=== PATIENT | female | born 1935 | race Caucasian/White ===

== ENCOUNTER 2025-10-03 00:23 | Observation (INO) | payer MEDICARE, SELFPAY ==
[2025-10-02 19:58] VITALS: BP 181/102
[2025-10-02 20:20] VITALS: BP 164/86
--- NOTE | 2025-10-02 20:24 | ED.GENMED ---
History of Present Illness
<Anup Ledbetter PA-C - Last Filed: 10/02/25 23:55>
General
Chief Complaint: Abdominal Symptoms
Time Seen by Provider: 10/02/25 20:13
History of Present Illness
History of Present Illness:
89-year-old female presents to the emergency department for evaluation of abrupt onset of nausea vomiting and diarrhea and generalized chills beginning this evening. The patient and her niece are currently traveling from [place] as they are
moving to [place]. She was about her normal state of health today until the late afternoon when she began to complain of fatigue and had abrupt onset of symptoms. Of note she was recently admitted to a hospital in [place] for possible stroke
and according to her niece was started on 'some antiplatelet or anticoagulant, I am not sure'. She has a history of biliary stent with a removal plan earlier this month that was canceled due to the initiation of the blood thinner after potential
stroke. When questioned about potential recent antibiotic use the patient repeatedly states 'ciprofloxacin' but is unable to give me any further details of this and her niece is not certain that this did occur.
Patient is a biliary stent in place that was required after having what sounds to be cholangitis due to biliary obstruction in the aftermath of a laparoscopic cholecystectomy. Her primary health care has been in [facility] up until recently
Review of Systems
<Anup Ledbetter PA-C - Last Filed: 10/02/25 23:55>
Review of Systems
Allergies reviewed?: Yes
All Other Systems: ROS reviewed and negative except as documented in HPI and ROS
Phy Exam
<Anup Ledbetter PA-C - Last Filed: 10/02/25 23:55>
Physical Exam
Physical Exam:
GEN: Ill-appearing, pale, tremulous
HEENT: Oral mucosa moist, no scleral icterus
Cardiac: Tachycardic, regular
Lung: No respiratory distress, no tachypnea
Abdomen: Soft, grossly nontender to palpation
MSK: No gross deformity or injuries
Skin: Good color, no pallor or jaundice, no rashes
Neuro: Alert, mildly confused, moves all extremities freely
Psych: Calm, cooperative
Course
<Anup Ledbetter PA-C - Last Filed: 10/02/25 23:55>
Orders/Labs/Results
Orders:
Orders
10/02/25 20:20
Ondansetron Injectable [Zofran] 4 mg IV NOW STA
10/02/25 20:21
Lactated Ringers [Lr] 1,000 ml IV BOLUS
10/02/25 20:37
Complete Blood Count/With Diff Urgent
Comprehensive Metabolic Panel Urgent
Lactic Acid Q4H
Comment: CANCEL 2nd LACTIC ACID IF 1st LACTIC ACID IS LESS THAN 2
Lipase Urgent
Prothrombin Time Urgent
10/02/25 20:38
Blood Culture Q30M
JUAN Source: Blood/Venous
Specimen Description:
Blood Culture Q30M
JUAN Source: Blood/Venous
Specimen Description:
10/02/25 21:37
CT Abd/Pel (IV only)-DH only Urgent
Comment:
Reason For Exam: N/V/D lactic acidosis
10/03/25 00:05
COVID-19 Antigen Stat
Source: Nasal Swab
Influenza A+B Rapid Molecular Stat
JUAN Source: Nasal Swab
Specimen Description:
STOOL [C difficile Antigen & Toxins] Routine
JUAN Source: Feces/Stool
Specimen Description:
Stool Culture Routine
JUAN Source: Feces/Stool
Specimen Description:
Stool For WBC Routine
JUAN Source: Feces/Stool
Specimen Description:
Yersinia Culture-Stool Routine
JUAN Source: Feces/Stool
Specimen Description:
10/03/25 00:08
Admit/Transfer Patient As Directed
Co-Sign Provider:
Level of Care: Observation services
Assign to:: Medical/Surgical
Physician / Group: juan f
Diagnosis: enterecolitis
PRN Pain Medication Management As Directed
May give lesser potent ordered pain med per pt: Yes
preference::
Protocol:: Medication orders for pain may be administered in a
manner that supports deferring to patient preference
when the pt is:
- Requesting an ordered lesser potent pain medication.
Least to most potent pain medications are defined
as: acetaminophen < NSAID < tramadol < opioids
(morphine, oxycodone, hydromorphone).
- Requesting a lesser dose of the same medication IF
ORDERED.
- Requesting a less intrusive route of administration
if both routes are prescribed by the provider (PO <
IV).
10/03/25 00:10
Code Status As Directed
Resuscitation Status: Do not resuscitate
Reached after discussion with pt or family/Healthcare POA: Yes
DNR Bracelet Application ONCE
10/03/25 00:30
Lactic Acid Q4H
Comment: CANCEL 2nd LACTIC ACID IF 1st LACTIC ACID IS LESS THAN 2
Abnormal Lab Results
10/02/25
20:37
WBC 18.8 H 10^3/uL
(4.8-10.8)
RBC 4.01 L 10^6/uL
(4.20-5.40)
Hgb 9.3 L g/dL
(12.0-16.0)
Hct 30.8 L %
(37.0-47.0)
MCV 76.8 L fL
(81.0-99.0)
MCH 23.2 L pg
(27.0-31.0)
MCHC 30.2 L g/dL
(33.0-37.0)
RDW 17.7 H %
(11.5-14.5)
Abs Immat Gran (auto) 0.1 H 10^3/uL
(0-0.05)
Absolute Neuts (auto) 16.7 H 10^3/uL
(1.4-6.5)
Absolute Lymphs (auto) 0.8 L 10^3/uL
(1.2-3.4)
Absolute Monos (auto) 1.0 H 10^3/uL
(0.1-0.6)
Neutrophils % 88.5 H %
(42.2-75.2)
Lymphocytes % 4.0 L %
(20.5-51.1)
PT 14.8 H Sec
(11.4-14.6)
Potassium 3.4 L mmol/L
(3.5-5.1)
Chloride 110 H mmol/L
(98-107)
BUN 21 H mg/dl
(7-17)
Glucose 191 H mg/dl
(70-99)
Lactic Acid 3.6 H mmol/L
(0.7-2.0)
Alkaline Phosphatase 171 H U/L
(38-126)
10/02/25 20:37
10/02/25 20:37
Vital Signs
Initial and Last Documented VS:
Initial Vital Signs
Temp Pulse Resp BP Pulse Ox
98.2 F 110 16 181/102 95
10/02/25 19:58 10/02/25 19:58 10/02/25 19:58 10/02/25 19:58 10/02/25 19:58
Last Documented Vital Signs
Temp Pulse Resp BP Pulse Ox
98.1 F 100 21 145/96 98
10/02/25 22:55 10/02/25 22:30 10/02/25 22:30 10/02/25 22:19 10/02/25 22:30
<Josiane Conn MD - Last Filed: 10/03/25 00:19>
Orders/Labs/Results
Orders:
Orders
10/02/25 20:20
Ondansetron Injectable [Zofran] 4 mg IV NOW STA
10/02/25 20:21
Lactated Ringers [Lr] 1,000 ml IV BOLUS
10/02/25 20:37
Complete Blood Count/With Diff Urgent
Comprehensive Metabolic Panel Urgent
Lactic Acid Q4H
Comment: CANCEL 2nd LACTIC ACID IF 1st LACTIC ACID IS LESS THAN 2
Lipase Urgent
Prothrombin Time Urgent
10/02/25 20:38
Blood Culture Q30M
JUAN Source: Blood/Venous
Specimen Description:
Blood Culture Q30M
JUAN Source: Blood/Venous
Specimen Description:
10/02/25 21:37
CT Abd/Pel (IV only)-DH only Urgent
Comment:
Reason For Exam: N/V/D lactic acidosis
10/03/25 00:05
COVID-19 Antigen Stat
Source: Nasal Swab
Influenza A+B Rapid Molecular Stat
JUAN Source: Nasal Swab
Specimen Description:
STOOL [C difficile Antigen & Toxins] Routine
JUAN Source: Feces/Stool
Specimen Description:
Stool Culture Routine
JUAN Source: Feces/Stool
Specimen Description:
Stool For WBC Routine
JUAN Source: Feces/Stool
Specimen Description:
Yersinia Culture-Stool Routine
JUAN Source: Feces/Stool
Specimen Description:
10/03/25 00:08
Admit/Transfer Patient As Directed
Co-Sign Provider:
Level of Care: Observation services
Assign to:: Medical/Surgical
Physician / Group: juan f
Diagnosis: enterecolitis
PRN Pain Medication Management As Directed
May give lesser potent ordered pain med per pt: Yes
preference::
Protocol:: Medication orders for pain may be administered in a
manner that supports deferring to patient preference
when the pt is:
- Requesting an ordered lesser potent pain medication.
Least to most potent pain medications are defined
as: acetaminophen < NSAID < tramadol < opioids
(morphine, oxycodone, hydromorphone).
- Requesting a lesser dose of the same medication IF
ORDERED.
- Requesting a less intrusive route of administration
if both routes are prescribed by the provider (PO <
IV).
10/03/25 00:10
Code Status As Directed
Resuscitation Status: Do not resuscitate
Reached after discussion with pt or family/Healthcare POA: Yes
DNR Bracelet Application ONCE
10/03/25 00:30
Lactic Acid Q4H
Comment: CANCEL 2nd LACTIC ACID IF 1st LACTIC ACID IS LESS THAN 2
Abnormal Lab Results
10/02/25
20:37
WBC 18.8 H 10^3/uL
(4.8-10.8)
RBC 4.01 L 10^6/uL
(4.20-5.40)
Hgb 9.3 L g/dL
(12.0-16.0)
Hct 30.8 L %
(37.0-47.0)
MCV 76.8 L fL
(81.0-99.0)
MCH 23.2 L pg
(27.0-31.0)
MCHC 30.2 L g/dL
(33.0-37.0)
RDW 17.7 H %
(11.5-14.5)
Abs Immat Gran (auto) 0.1 H 10^3/uL
(0-0.05)
Absolute Neuts (auto) 16.7 H 10^3/uL
(1.4-6.5)
Absolute Lymphs (auto) 0.8 L 10^3/uL
(1.2-3.4)
Absolute Monos (auto) 1.0 H 10^3/uL
(0.1-0.6)
Neutrophils % 88.5 H %
(42.2-75.2)
Lymphocytes % 4.0 L %
(20.5-51.1)
PT 14.8 H Sec
(11.4-14.6)
Potassium 3.4 L mmol/L
(3.5-5.1)
Chloride 110 H mmol/L
(98-107)
BUN 21 H mg/dl
(7-17)
Glucose 191 H mg/dl
(70-99)
Lactic Acid 3.6 H mmol/L
(0.7-2.0)
Alkaline Phosphatase 171 H U/L
(38-126)
10/02/25 20:37
10/02/25 20:37
Vital Signs
Initial and Last Documented VS:
Initial Vital Signs
Temp Pulse Resp BP Pulse Ox
98.2 F 110 16 181/102 95
10/02/25 19:58 10/02/25 19:58 10/02/25 19:58 10/02/25 19:58 10/02/25 19:58
Last Documented Vital Signs
Temp Pulse Resp BP Pulse Ox
98.1 F 100 21 145/96 98
10/02/25 22:55 10/02/25 22:30 10/02/25 22:30 10/02/25 22:19 10/02/25 22:30
<Anup Ledbetter PA-C - Last Filed: 10/02/25 23:55>
MDM/Problems Addressed
MDM/Problems Addressed:
Patient with significant leukocytosis which is most likely a stress response/due to hypovolemia. She also has marked lactic acidosis. Imaging shows no evidence for acute surgical pathology rather significant evidence for enterocolitis. Biliary
stenting appears to be stable with no evidence for obstruction. Clinically her symptoms are compatible with acute enterocolitis, do not suspect cholangitis. At this time the patient has numerous antibiotic allergies thus we will hold off on
empiric antibiotics as viral pathogen and may be the ultimate culprit. Given her advanced age and significant lab abnormalities however will admit to the hospitalist service for further IV hydration and management
<Anup Ledbetter PA-C - Last Filed: 10/02/25 23:55>
*Pulse Oximetry
SaO2: 95
Oxygen Mode of Delivery: Room air
Patient hypoxic: no
*Critical Care Note
Total Time (30-74mins, 75-104mins- exclusive of procedures): Not Applicable
ED Attending Note
<Anup Ledbetter PA-C - Last Filed: 10/02/25 23:55>
-
Portions of this chart may have been created with voice recognition software.� Occasional wrong word or��sound alike� substitutions may have occurred due to the inherent limitations of voice recognition software.
<Josiane Conn MD - Last Filed: 10/03/25 00:19>
ED Attending Note
Patient seen and examined by attending physician: Yes
I performed the substantive portion of visit, reviewed & personally made and approve the management plan that is documented in note by myself or LARRY.: Yes
ED Attending Note:
89-year-old female was feeling perfectly well until earlier today where she developed multiple episodes of nonbloody vomiting associated with nonbloody diarrhea. She denies abdominal pain at this time. She denies fever, chills, chest pain,
shortness of breath. On exam, patient is awake alert pleasant. Rash noted which she states is subacute/chronic. Abdomen soft and nontender. Plan is admission, hydration, close observation. Will not administer antibiotics at this time given
multiple drug allergies/antibiotic allergies, no specific source noted, etc.
Discharge Plan
Departure
Patient Disposition: Admit
Date of Disposition: 10/02/25
Time of Disposition: 23:12
Admit to: Med/Surg
Presentation/result/management discussed w/ accepting MD/DO: Hospitalist
Discharge Problem:
Enterocolitis
Prescriptions:
No Action
atorvastatin 40 mg Tablet
40 mg PO DAILY
clopidogrel [Plavix] 75 mg Tablet
75 mg PO DAILY
famotidine 20 mg Tablet
20 mg PO DAILY
amlodipine 10 mg Tablet
10 mg PO DAILY
hydrocortisone 1 % Cream
1 applic TOPICAL BID PRN (Reason: Itching)
pantoprazole 40 mg Tablet,Delayed Release (Dr/Ec)
40 mg PO DAILY
valsartan 320 mg Tablet
320 mg PO DAILY
fluoxetine 10 mg Capsule
10 mg PO DAILY
sertraline 25 mg Tablet
25 mg PO DAILY
aspirin 81 mg Tablet
81 mg PO DAILY
metoprolol succinate 25 mg Tablet Extended Release 24 Hr
25 mg PO DAILY
fluticasone propionate [Flonase] 50 mcg/actuation [place],Suspension
1 spray INTRANASAL DAILY
loratadine 10 mg Tablet
10 mg PO DAILY
olopatadine [Pataday Once Daily Relief] 0.2 % Drops
See Rx Instructions .ROUTE .COMPLEX
Rx Instructions:
1 drop daily
Referrals:
NONE,* [Family Provider, Internal Medicine]
Interventions
Interventions:
*Risk Screen - Suicide Last Done: 10/02/25 19:58
*General Assessment Last Done: 10/02/25 19:58
*Neglect/Abuse Screening Last Done: 10/02/25 19:58
*ED- Fall Risk Assessment Last Done: 10/02/25 19:58
*ED COVID-19 Vaccine History Last Done: 10/02/25 19:58
*ED Influenza Vaccine History Last Done: 10/02/25 19:58
YJ-Kzvwkl-Ejfkvgbuvc Assessment Last Done: 10/02/25 20:53
ED- Cardiac Assessment Last Done: 10/02/25 20:53
ED- Neurological Assessment Last Done: 10/02/25 20:53
ED- Pulmonary Assessment Last Done: 10/02/25 20:53
Discharge Date and Time
Print Language: TELUGU
[2025-10-02] MEDS: LR 1000 IV (20:47)
[2025-10-02] MEDS: ZOFRAN 4 MG IV (20:47)
[2025-10-02 21:00] VITALS: BP 163/77
[2025-10-02 21:10] LABS: INR 1.13; PT 14.8 Sec (11.4-14.6)
[2025-10-02 21:11] LABS: ALT (SGPT) 18 U/L (0-35); AST (SGOT) 28 U/L (14-36); Albumin 3.9 g/dl (3.5-5.0); Alkaline Phosphatase 171 U/L (38-126); Blood Urea Nitrogen 21 mg/dl (7-17); Calcium 8.8 mg/dl (8.4-10.2); Carbon Dioxide 24 mmol/L (22-30); Chloride 110 mmol/L (98-107); Glucose 191 mg/dl (70-99); Lipase 62 U/L (23-300); Potassium 3.4 mmol/L (3.5-5.1); Sodium 145 mmol/L (135-145); Total Protein 6.8 g/dl (6.3-8.2); eGFR 54.19
[2025-10-02 21:14] LABS: Hematocrit 30.8 % (37.0-47.0); Hemoglobin 9.3 g/dL (12.0-16.0); Mean Corp Hgb Conc. 30.2 g/dL (33.0-37.0); Mean Corpuscular Volume 76.8 fL (81.0-99.0); Nucleated Red Blood Cells % 0 %; Platelet Count 347 10^3/uL (130-400); Red Cell Dist. Width 17.7 % (11.5-14.5)
[2025-10-02 22:17] VITALS: BP 127/108
[2025-10-02 22:19] VITALS: BP 145/96
[2025-10-02 23:00] VITALS: BP 169/99
--- NOTE | 2025-10-02 23:32 | HPS.HSE ---
Family Physician
-
Family Physician: * NONE
Chief Complaint
-
Abdominal symptoms
History of Present Illness
This is a 89-year-old female who has a (past medical history significant for GERD, status post pacemaker, hypertension, hyperlipidemia, recently diagnosed with CVA presenting to the emergency department with abrupt onset of abdominal pain nausea
vomiting.
Patient reported that she had a recent upper respiratory infection and she was placed on ciprofloxacin. She developed a severe upper and lower extremity erythematous rash and pruritus. She stopped the Cipro 2 days after taking it and was placed on
hydrocortisone cream. She states she has been itching since then. She cannot tell me exactly how long she has been with this rash but it seems to be within the last week or so. She has not been having any abdominal pain. She denies any fevers or
chills. She stated she had some chills and was hyperventilating and then vomited nonbloody and nonbilious. She also reports having diarrhea which was nonbloody. She stated that stool just appeared to pass through. She denied any abdominal pain.
She denies any cough.
She was recently admitted to hospital in [place] for stroke/TIA and she reports some residual dysarthria. And at that time was started on parenteral antiplatelet therapy. She stated that she had what appears to be cholangitis due to biliary
obstruction and status post laparoscopic cholecystectomy.
In the emergency department here she was afebrile, blood pressure was stable at 145/90 with a pulse of 100 and she was satting 98% on room air.
She has a lactic acid of 3.6, hemoglobin was 9.3 WBCs 18.8 and normal platelet count. Electrolytes BUN and creatinine were otherwise normal. LFTs are unremarkable. CT of the abdomen pelvis shows findings suspicious for mild enterocolitis with
possible mild pneumonitis in the medial right lung base.
Medical History
Past Medical History
Past Medical History: Reports Arrhythmia (Heart block status post pacemaker), CVA (TIA), GERD, HTN and Hypercholesterolemia
Additional Past Medical History:
Acute cholecystitis status post biliary stent placement
Past Surgical History: Reports Cholecystectomy
Social History
Tobacco: Non-smoker
Alcohol: None
Drug: None
Living: With Family
Family History
Family History: Not pertinent
Allergies / Home Medications
Allergies reflects when Allergies were last updated in [facility].
Home Medications with original date entered in [facility]
Allergy/Medication List:
Allergies
Allergy/AdvReac Type Severity Reaction Status Date / Time
bisoprolol Allergy Unknown Unknown Verified 10/02/25 22:10
clindamycin Allergy Unknown Unknown Verified 10/02/25 22:10
codeine Allergy Unknown Unknown Verified 10/02/25 22:10
erythromycin base Allergy Unknown Unknown Verified 10/02/25 22:10
moxifloxacin Allergy Unknown Unknown Verified 10/02/25 22:10
neomycin Allergy Unknown Unknown Verified 10/02/25 22:10
simvastatin Allergy Unknown Unknown Verified 10/02/25 22:10
Sulfa (Sulfonamide Allergy Unknown Unknown Verified 10/02/25 22:10
Antibiotics)
tetracycline Allergy Unknown Unknown Verified 10/02/25 22:10
amoxicillin (From Augmentin) Allergy Unknown Verified 10/02/25 22:10
clavulanic acid (From Allergy Unknown Verified 10/02/25 22:10
Augmentin)
Home Medications
amlodipine 10 mg tablet 10 mg PO DAILY 10/02/25
aspirin 81 mg tablet 81 mg PO DAILY 10/02/25
atorvastatin 40 mg tablet 40 mg PO DAILY 10/02/25
clopidogrel 75 mg tablet (Plavix) 75 mg PO DAILY 10/02/25
famotidine 20 mg tablet 20 mg PO DAILY 10/02/25
fluoxetine 10 mg capsule 10 mg PO DAILY 10/02/25
fluticasone propionate 50 mcg/actuation nasal spray,suspension 1 spray intranasal DAILY 10/02/25
hydrocortisone 1 % topical cream 1 applic topical BID PRN Itching 10/02/25
loratadine 10 mg tablet 10 mg PO DAILY 10/02/25
metoprolol succinate 25 mg tablet,extended release 24 hr 25 mg PO DAILY 10/02/25
olopatadine 0.2 % eye drops (Pataday Once Daily Relief) See Rx Instructions .Route .COMPLEX 10/02/25
pantoprazole 40 mg tablet,delayed release 40 mg PO DAILY 10/02/25
sertraline 25 mg tablet 25 mg PO DAILY 10/02/25
valsartan 320 mg tablet 320 mg PO DAILY 10/02/25
Review of Systems
-
Constitutional: Reports No Symptoms
EENT: Reports No Symptoms
Respiratory: Reports No Symptoms
Cardiac: Reports No Symptoms
Abdomen/GI: Reports Abdominal Pain, Nausea, Vomiting and Diarrhea
: Reports No Symptoms
Musculoskeletal: Reports No Symptoms
Skin: Reports Itching and Rash
Neurological: Reports No Symptoms
Endocrine: Reports No Symptoms
Hematologic/Lymphatic: Reports No Symptoms
Psych: Reports No Symptoms
Physical Exam
Vital Signs
Vital Signs
Temp Pulse Resp BP Pulse Ox
98.1 F 100 21 145/96 98
10/02/25 22:55 10/02/25 22:30 10/02/25 22:30 10/02/25 22:19 10/02/25 22:30
Physical Exam
General: Well Developed, Well Nourished and No Apparent Distress
HEENT: NormoCephalic, Moist mucous membranes and Atraumatic
Respiratory: Clear
Cardiac: S1/S2 and Regular Rhythm; No Murmur or Rub
GI: Soft, Non Tender, Non Distended and Normal Bowel Sounds; No Organomegaly
Rectal: Deferred by Provider
Musculoskeletal: No Clubbing, No Cyanosis and No Edema
Skin: Rash
Neuro: AO x 3, Nonfocal/grossly intact and Slurred Speech (Dysarthria); No Facial Droop
Hematologic/Lymphatic: No Lymphadenopathy
Psych: Calm
Laboratory Results
-
10/02/25 20:37
10/02/25 20:37
Laboratory Results
PT 14.8 Sec (11.4-14.6) H 10/02/25 20:37
INR 1.13 10/02/25 20:37
Lactic Acid 3.6 mmol/L (0.7-2.0) H 10/02/25 20:37
Total Bilirubin 0.4 mg/dl (0.2-1.3) 10/02/25 20:37
AST 28 U/L (14-36) 10/02/25 20:37
ALT 18 U/L (0-35) 10/02/25 20:37
Alkaline Phosphatase 171 U/L (38-126) H 10/02/25 20:37
Lipase 62 U/L (23-300) 10/02/25 20:37
Data Reviewed
-
CT Scan: Report Reviewed by me
Medical Tests (Nuc Med, Echo, EKG etc): Other (Telemetry with paced rhythm)
Lab Data: Labs Reviewed by me
Old Records: Reviewed
Impression/Plan
-
IMPRESSION:
89-year-old female with past medical history of recent CVA with residual dysarthria, tremors, status post pacemaker, hypertension, hyperlipidemia, GERD, recent rash secondary to ciprofloxacin use who presents to the emergency department with acute
episode of nausea vomiting and diarrhea without abdominal pain fevers but noted chills. She has leukocytosis to 18. Labs otherwise unremarkable. She is hemodynamically stable was found to have a lactic acid of 3.6. She has a CT scan showing mild
enterocolitis.
PLAN:
Enterocolitis -nausea vomiting and diarrhea consistent with this. No systemic findings of fever but does have leukocytosis.
- Admit to MedSurg
- Blood cultures sent
- Obtain stool studies and C. difficile
- Check COVID
�Hold antibiotics unless febrile then we can start Zosyn
�Suspect possibility leukocytosis may be secondary to recent rash reaction but she has no eosinophilia
�Diet as tolerated, continue IV fluids
Rash -drug irruption with persistent itching
- Continue hydrocortisone cream
- As needed hydroxyzine for itching
CVA
- Continue aspirin and Plavix
- Continue statin
Hypertension
- Will continue amlodipine and valsartan as well as daily metoprolol succinate
DVT prophylaxis�Lovenox subcu
CODE STATUS�DNR
[2025-10-03 01:00] LABS: COVID-19 Antigen Negative (Negative)
[2025-10-03 01:16] VITALS: BP 90/68; BMI 22.7
[2025-10-03] MEDS: LR 1000 IV (01:35)
[2025-10-03] MEDS: ATARAX 10 MG PO (01:51)
--- NOTE | 2025-10-03 02:33 | PTCARENOTE ---
Received pt from er alert oriented tolerated transfer well.pt ambulated from stretcher to bed with walker and one person assist.Denies pain pt self positioning in bed,VS stable physical assessment preformed,IVF initiated at 100mls hour.
[2025-10-03 07:50] VITALS: BP 126/56
[2025-10-03 08:14] LABS: Hematocrit 25.5 % (37.0-47.0); Hemoglobin 8.1 g/dL (12.0-16.0); Mean Corp Hgb Conc. 31.8 g/dL (33.0-37.0); Mean Corpuscular Volume 75.9 fL (81.0-99.0); Platelet Count 284 10^3/uL (130-400); Red Cell Dist. Width 17.7 % (11.5-14.5)
[2025-10-03 08:49] LABS: Blood Urea Nitrogen 19 mg/dl (7-17); Calcium 8.0 mg/dl (8.4-10.2); Carbon Dioxide 26 mmol/L (22-30); Chloride 109 mmol/L (98-107); Estimated Creatinine Clearance 37 ml/min; Glucose 124 mg/dl (70-99); Potassium 3.3 mmol/L (3.5-5.1); Sodium 141 mmol/L (135-145); eGFR > 60.00
[2025-10-03] MEDS: DIOVAN 320 MG PO (09:48)
[2025-10-03] MEDS: PROZAC 10 MG PO (09:48)
[2025-10-03] MEDS: PROTONIX 40 MG PO (09:48)
[2025-10-03] MEDS: PEPCID 20 MG PO (09:48)
[2025-10-03] MEDS: PLAVIX 75 MG PO (09:49)
[2025-10-03] MEDS: LIPITOR 40 MG PO (09:49)
[2025-10-03] MEDS: CLARITIN 10 MG PO (09:49)
[2025-10-03] MEDS: ASPIR LOW (ENTERIC COATED) 81 MG PO (09:49)
[2025-10-03] MEDS: ZOLOFT 25 MG PO (09:49)
[2025-10-03] MEDS: TOPROL XL 25 MG PO (09:50)
--- NOTE | 2025-10-03 10:33 | CM ---
Addendum entered by Kerri Aguila 10/03/25 14:11:
Patient will d/c today. Niece will transport to assisted living in [place]
No CM needs at this time
Original Note:
Patient seen bedside w/ ancelmo, initial assessment completed. Patient is a 89-year-old female who has a (past medical history significant for GERD, status post pacemaker, hypertension, hyperlipidemia, recently diagnosed with CVA presenting to the
emergency department with abrupt onset of abdominal pain nausea vomiting.
Patient is a [place] resident, prev residing alone w/ 24 hour aides in a multi level home. Independent w/ rollator and cane, assisted w/ showers by aides. Per Kera ag, patient was due to admit to [facility] in [place]
today. Patient has OP/SNF/HC hx recently. Patient had a stoke in February and needed rehab following that. Per Kera, plan is for patient to d/c and she'll transport patient to assisted living facility.
PCP: [place] provider
Pharmacy: [facility] (temporary)
Patient admitted under obs services. CANELA form verbally reviewed, copy provided, copy on chart
Plan: D/c to assisted living facility. Niece will transport
--- NOTE | 2025-10-03 12:03 | WOUNDNOTE ---
L POSTERIOR LEG AND ANKLE
--- NOTE | 2025-10-03 12:05 | WOUNDNOTE ---
MICK RN NOTE: Patient admitted with enterocolitis. PMH: TIA, stroke, PM 2017, HTN, incontinence of urine. Asked to see patient for stage 2 PI's reported on buttocks. Patient on Accumax bed, able to turn self in bed. Appetite is good. Sacrum and
buttocks blanchable pink, dry flaky skin and MASD, no open pressure injuries evident. Patient incontinent of large amt of urine when turned. Nurse Heena assisted with changing Ultrasorb pads and skin care, Calazime applied. Patient confirmed that
she uses depends at home due to incontinence. Family at bedside reports patient has 24 hr caregivers but does own yaneth care. Rash evident on posterior r leg and hands, very itchy reports patient, hydrocortisone already on order. Heels blanchable
pink, applied foam adhesives to protect and pillow placed under calves. For buttocks and sacrum, will order mineral oil to use daily and can apply to dry skin on legs daily. Provided air chair cushion and instructed family can take upon discharge.
Pressure ulcer prevention measures reviewed with patient and family, states they understand. Will sign off unless needed. Updated nurse and care plan.
--- NOTE | 2025-10-03 12:37 | W.PN.HOSP.TC ---
Today's Communication/Plan
-
dc
Assessment / Plan
Assessment / Plan
89yo F with PMHX of CVA with biliary stent, cholecystectomy, residual dysphasia, HTN, IBS, anxiety, CAD, HLD, SSS s/p PPM was on her way from [place] to [place] and stopped in the area to visit [facility], where she had her
lunch with family, but later started sith intractable nausea, vomiting so family brought her to the ED. CT abd/pelvis showed enterocolitis, also mild pneumonitis, probably 2/2 vomiting in RLL. Patient recently was taken off ciprofloxacin that she
was taking for penumonia. Since leukocytosis improving off Abx - most likely XR showed residual from previous episode, resolved as per patient and family 2 weeks ago. Patient improved,tolerating diet and medcially stable for d/c after repletion of
potassium and check for magnesium deficiency
A/P:
#Acute enterocoitis
#IBS
#NAusea, vomiting 2/2 above
#Biliary stenti
#Elevated alk.phos with HX of cholecystectomy
stent radiografically patent
no bd pain
Elevated alk.phos most likely bone origin
Symptoms resolved
#Residual RLL pneumonitis
no pronounced respiratory symptoms
#Hypokalemia
#Hypocalcemia
#hypomagnesemia
replete
#Pruritic rash
started after recent cipro
now resolving on topical steroids - leftover on b/l arms only
outpatient cager operator advised -family verbalized understanding
#Anemia
acutley exacerbated by hemodilution with IVF
no overt bleeding
no stool while in hospital
outpatient f/u
#L renal cysts
no follow up advised
#Hx of CVA
#Essential HTN
#Anxiety d/o
#ASCVD
#HLD
cont home meds
DVT ppx SCDs
Full code
I have spent at least 55min reviewing chart, test results, communication with family and providing direct patietn care
Anticipated Discharge: Today
Subjective/Interval History
-
Date of Service: October 03, 2025
Objective Data
-
Labs:
Laboratory Results
10/03/25
07:36
WBC 13.5 H
Hgb 8.1 L
Hct 25.5 L
Plt Count 284
Sodium 141
Potassium 3.3 L
Chloride 109 H
Carbon Dioxide 26
BUN 19 H
Creatinine 0.8
Glucose 124 H
Calcium 8.0 L
Vital Signs:
Vital Signs
Temp Pulse Resp BP Pulse Ox
98.3 F 84 16 126/56 97
10/03/25 07:50 10/03/25 09:48 10/03/25 07:50 10/03/25 09:48 10/03/25 07:50
I&O
10/02/25 10/03/25 10/04/25
06:59 06:59 06:59
Intake Total 740 / 740
Balance 740 / 740
Review of Systems
-
History Source: Patient
All other systems: Reviewed and negative
Physical Exam
-
General: No Apparent Distress
HEENT: Normocephalic
Respiratory: Clear to Auscultation
Cardiac: Regular Rhythm
GI: Soft, Nontender and Nondistended
Neuro: Awake, Alert and Other (dysphasia)
Psych: Calm
[2025-10-03 13:18] LABS: Magnesium 1.2 mg/dl (1.6-2.3)
[2025-10-03] MEDS: CALCIUM GLUCONATE 100 IV (13:26)
[2025-10-03] MEDS: KCL 40 MEQ PO (13:26)
--- NOTE | 2025-10-03 13:45 | W.DCSUMMARY ---
Addendum entered and electronically signed by Roldan Moss MD 10/04/25 12:07:
D/C date 10/04/25
correction: patient going to [facility] living. GI outpatient advised. PT/OT Rx provided as family declined STR
Original Note:
Discharge Summary
Discharge Data
Date of Admission: 10/03/25
Date of Discharge: 10/03/25
-
Pending Results: No
Hospital Course
89yo F with PMHX of CVA with biliary stent, cholecystectomy, residual dysphasia, HTN, IBS, anxiety, CAD, HLD, SSS s/p PPM was on her way from [place] to [place] and stopped in the area to visit [facility], where she had her
lunch with family, but later started sith intractable nausea, vomiting so family brought her to the ED. CT abd/pelvis showed enterocolitis, also mild pneumonitis, probably 2/2 vomiting in RLL. Patient recently was taken off ciprofloxacin that she
was taking for penumonia. Since leukocytosis improving off Abx - most likely XR showed residual from previous episode, resolved as per patient and family 2 weeks ago. Patient improved,tolerating diet and medcially stable for d/c after repletion of
potassium and magnesium
I have spent at least 55min reviewing chart, test results, communication with family and providing direct patietn care
Patient was managed for:
#Acute enterocoitis
#IBS
#NAusea, vomiting 2/2 above
#Biliary stenti
#Elevated alk.phos with HX of cholecystectomy
#Residual RLL pneumonitis
#Hypokalemia
#Hypocalcemia
#hypomagnesemia
#Pruritic rash
#Anemia
#L renal cysts
#Hx of CVA
#Essential HTN
#Anxiety d/o
#ASCVD
#HLD
Discharge Plan
-
Patient Disposition: Home (Routine Discharge)
Discharge Diagnosis/Procedures: Enterocolitis
Diet: Low Cholesterol
Activity: As tolerated
Activity Restrictions/Additional Instructions:
Wound Care Instructions
sacrum and buttock: after cleaning with soap and water apply thin layer of mineral oil daily then barrier cream prn soilage
legs apply mineral oil daily
hands and posterior leg rash-apply hydrocortisone as scheduled.
Can take air chair cushion upon discharge.
Follow up at wound care center call for an appointment.
Referrals:
NONE,* [Family Provider, Internal Medicine]
Prescriptions:
Continued
atorvastatin 40 mg Tablet
40 mg PO DAILY
clopidogrel [Plavix] 75 mg Tablet
75 mg PO DAILY
famotidine 20 mg Tablet
20 mg PO DAILY
amlodipine 10 mg Tablet
10 mg PO DAILY
hydrocortisone 1 % Cream
1 applic TOPICAL BID PRN (Reason: Itching)
pantoprazole 40 mg Tablet,Delayed Release (Dr/Ec)
40 mg PO DAILY
valsartan 320 mg Tablet
320 mg PO DAILY
fluoxetine 10 mg Capsule
10 mg PO DAILY
sertraline 25 mg Tablet
25 mg PO DAILY
aspirin 81 mg Tablet
81 mg PO DAILY
metoprolol succinate 25 mg Tablet Extended Release 24 Hr
25 mg PO DAILY
fluticasone propionate 50 mcg/actuation [place],Suspension
1 spray INTRANASAL DAILY
loratadine 10 mg Tablet
10 mg PO DAILY
olopatadine [Pataday Once Daily Relief] 0.2 % Drops
See Rx Instructions .ROUTE .COMPLEX
Rx Instructions:
1 drop daily
Discharge Orders:
Discharge Patient (As Directed); Ordered 10/03/25
Ordered By: Roldan Moss
Discharge Date and Time
Print Language: SLOVENIAN
[2025-10-03] MEDS: MAGNESIUM SULFATE 100 IV (13:48)
[2025-10-03 15:50] VITALS: BP 123/64
[2025-10-03 16:58] VITALS: BP 104/70; BP 95/60; PULSE 67; PULSE 71
[2025-10-03] MEDS: LOVENOX 40 MG SC (17:15)
[2025-10-03 17:39] LABS: Iron < 20 ug/dl (37-170)
[2025-10-03 17:44] LABS: Total Iron Binding Capacity 274 ug/dl (265-497)
[2025-10-03 18:26] LABS: Ferritin 14.4 ng/ml (11.1-264.0)
[2025-10-03] MEDS: OLOPATADINE 0.1% OPHTHALMIC SOLUTION 1 DROP OPHTH (21:25)
[2025-10-03 23:31] VITALS: BP 164/74
[2025-10-04 03:48] VITALS: BP 164/80
[2025-10-04 07:55] VITALS: BP 177/82; BP 193/84
[2025-10-04 07:59] LABS: Hematocrit 26.4 % (37.0-47.0); Hemoglobin 8.2 g/dL (12.0-16.0); Mean Corp Hgb Conc. 31.1 g/dL (33.0-37.0); Mean Corpuscular Volume 77.0 fL (81.0-99.0); Nucleated Red Blood Cells % 0 %; Platelet Count 271 10^3/uL (130-400); Red Cell Dist. Width 17.8 % (11.5-14.5)
[2025-10-04 08:33] LABS: ALT (SGPT) 16 U/L (0-35); AST (SGOT) 24 U/L (14-36); Albumin 3.0 g/dl (3.5-5.0); Alkaline Phosphatase 119 U/L (38-126); Blood Urea Nitrogen 13 mg/dl (7-17); Calcium 8.5 mg/dl (8.4-10.2); Carbon Dioxide 27 mmol/L (22-30); Chloride 108 mmol/L (98-107); Estimated Creatinine Clearance 37 ml/min; Glucose 90 mg/dl (70-99); Magnesium 2.1 mg/dl (1.6-2.3); Potassium 3.5 mmol/L (3.5-5.1); Sodium 138 mmol/L (135-145); Total Protein 5.9 g/dl (6.3-8.2); eGFR > 60.00
[2025-10-04] MEDS: LIPITOR 40 MG PO (09:30)
[2025-10-04] MEDS: ASPIR LOW (ENTERIC COATED) 81 MG PO (09:31)
[2025-10-04] MEDS: PLAVIX 75 MG PO (09:31)
[2025-10-04] MEDS: TOPROL XL 25 MG PO (09:31)
[2025-10-04] MEDS: NORVASC 10 MG PO (09:31)
[2025-10-04] MEDS: ZOLOFT 25 MG PO (09:31)
[2025-10-04] MEDS: DIOVAN 320 MG PO (09:31)
[2025-10-04] MEDS: PROZAC 10 MG PO (09:31)
[2025-10-04] MEDS: PEPCID 20 MG PO (09:31)
[2025-10-04] MEDS: PROTONIX 40 MG PO (09:31)
[2025-10-04] MEDS: HYDROPHOR 1 APPLIC TOPICAL (09:32)
[2025-10-04] MEDS: OLOPATADINE 0.1% OPHTHALMIC SOLUTION 1 DROP OPHTH (09:32)
--- NOTE | 2025-10-04 11:09 | W.PN.HOSP.TC ---
Today's Communication/Plan
-
dc
Assessment / Plan
Assessment / Plan
89yo F with PMHX of CVA with biliary stent, cholecystectomy, residual dysphasia, HTN, IBS, anxiety, CAD, HLD, SSS s/p PPM was on her way from [place] to [place] and stopped in the area to visit [facility], where she had her
lunch with family, but later started sith intractable nausea, vomiting so family brought her to the ED. CT abd/pelvis showed enterocolitis, also mild pneumonitis, probably 2/2 vomiting in RLL. Patient recently was taken off ciprofloxacin that she
was taking for pneumonia. Since leukocytosis improving off Abx - most likely XR showed residual from previous episode, resolved as per patient and family 2 weeks ago. Patient improved,tolerating diet and medically stable for d/c to assisted living
in [place].
A/P:
#Acute enterocolitis
#IBS
#Nausea, vomiting 2/2 above
#Biliary stent
#Elevated alk.phos with HX of cholecystectomy
stent radiographically patent
no bd pain
Elevated alk.phos most likely bone origin vs gastroenteritis as resolved
Symptoms resolved
#Residual RLL pneumonitis
no pronounced respiratory symptoms and leukocytosis resolved off Abx
#Hypokalemia
#Hypocalcemia
#hypomagnesemia
replete
#Pruritic rash
improving significantly on topical steroids
started after recent cipro
now resolving on topical steroids - leftover on b/l arms only
outpatient slurry tank operator advised -family verbalized understanding
#Anemia, [place]
acutely exacerbated by hemodilution with IVF
no overt bleeding
no stool while in hospital
outpatient f/u with PCP for colonoscopy and EGD -instructions provided
#Ambulatory deficiency
2/2 recent acute enteritis
PT/OT recommended rehab that delayed d/c - family elected outpatient PT/OT while she will be accepted to [facility] living
#L renal cysts
no follow up advised
#Hx of CVA
#Essential HTN
#Anxiety d/o
#ASCVD
#HLD
cont home meds
DVT ppx SCDs
Full code
I have spent at least 36min reviewing chart, test results, communication with family and providing direct patietn care
Anticipated Discharge: Today
Subjective/Interval History
-
Date of Service: October 04, 2025
Objective Data
-
Labs:
Laboratory Results
10/04/25
07:24
WBC 10.6
Hgb 8.2 L
Hct 26.4 L
Plt Count 271
Sodium 138
Potassium 3.5
Chloride 108 H
Carbon Dioxide 27
BUN 13
Creatinine 0.8
Glucose 90
Calcium 8.5
Total Bilirubin 0.6
AST 24
ALT 16
Alkaline Phosphatase 119
Vital Signs:
Vital Signs
Temp Pulse Resp BP Pulse Ox
97.4 F 61 16 177/82 99
10/04/25 07:55 10/04/25 07:55 10/04/25 07:55 10/04/25 07:55 10/04/25 07:55
I&O
10/03/25 10/04/25 10/05/25
06:59 06:59 06:59
Intake Total 740 / 740 180 / 180
Balance 740 / 740 180 / 180
Review of Systems
-
History Source: Patient
All other systems: Reviewed and negative
Physical Exam
-
General: No Apparent Distress
HEENT: Normocephalic
GI: Soft, Nontender and Nondistended
Neuro: Awake, Oriented, AO x 3 and Slurred Speech (chronic)
Psych: Calm
--- NOTE | 2025-10-04 12:08 | CM ---
Patient will d/c today. Niece will transport patient to [facility] in [place].
Therapy rec skilled rehab, niece declined, stating patient can receive therapy once she's admitted to the facility.
Niece asking for PT/OT/ST scripts to take. TT hospitalist to update
Plan: D/c w/ niece to [place]
[2025-10-04] MEDS: FERRLECIT 110 MG IV (13:31)
== END 2025-10-04 15:40 | disposition home or self-care (01) ==
LOC: 4 EAST ACU 00:23
PROVIDERS: Physician Assistant; ADMITTING PHYSICIAN Internal Medicine; ATTENDING PHYSICIAN Internal Medicine; EMERGENCY PHYSICIAN Emergency Medicine
DX: K58.9 Irritable bowel syndrome, unspecified (principal); R21 Rash and other nonspecific skin eruption; E87.20 Acidosis, unspecified; D50.9 Iron deficiency anemia, unspecified; E83.42 Hypomagnesemia; E83.51 Hypocalcemia; E87.6 Hypokalemia; F41.9 Anxiety disorder, unspecified; I10 Essential (primary) hypertension; I25.10 Atherosclerotic heart disease of native coronary artery without angina pectoris; Z66 Do not resuscitate; K83.1 Obstruction of bile duct; K83.09 Other cholangitis; N28.1 Cyst of kidney, acquired; Z11.52 Encounter for screening for COVID-19; Z79.02 Long term (current) use of antithrombotics/antiplatelets; Z79.82 Long term (current) use of aspirin; Z79.899 Other long term (current) drug therapy
CPT/HCPCS: 74177; 80048; 80053; 82728; 83540; 83550; 83605; 83690; 83735; 84100; 85025; 85027; 85610; 87040; 87502; 87811; 93005; 97163; 99285; G0378; J2916; Q9967